=== PATIENT | female | born 1985 | race Caucasian/White ===

== ENCOUNTER 2019-03-17 08:40 | Outpatient (CLI) | payer BC ==
--- NOTE | 2019-03-17 12:10 | NM ---
HEPATOBILIARY SCAN: HISTORY:Right upper quadrant abdominal pain. RADIOPHARMACEUTICAL: 4.5 mCi Technetium 99m Mebrofenin injected intravenously FINDINGS: There is normal tracer extraction by the liver with normal excretion into the biliary tracts and smal l bowel loops and normal filling of the gallbladder. The calculated gallbladder ejection fraction following an oral fatty meal measures 32%. IMPRESSION:Normal exam.
== END 2019-03-17 08:41 | disposition home or self-care (01) ==
LOC: NM 08:40
PROVIDERS: ATTEND Internal Medicine Gastroenterology
DX: T50.905A Adverse effect of unspecified drugs, medicaments and biological substances, initial encounter (principal); N20.0 Calculus of kidney; K92.1 Melena; R11.0 Nausea; K59.09 Other constipation; D18.03 Hemangioma of intra-abdominal structures; R10.11 Right upper quadrant pain
CPT/HCPCS: 78227; A9537

== ENCOUNTER 2019-03-25 09:05 | Outpatient (CLI) | payer OTHER, BC ==
--- NOTE | 2019-03-25 11:57 | RAD ---
Upper GI series with air contrast: 03/25/2019 HISTORY: 34-year-old female with right upper quadrant abdominal pain and nausea. TECHNIQUE: Upright administration of effervescent granules, and thick liquid barium. Prone YANES administration of thin liquid barium through a straw. Fluoroscopy time: 1.6 minutes Dose: 304.4 uGy*m^2 FINDINGS: The esophagus, stomach, and duodenal bulb, have normal motility, distensibility, and where visible, m ucosal pattern. No moderate sized or large hiatal hernia. Minimal gastroesophageal reflux. No mass identified. IMPRESSION: 1. Minimal gastroesophageal reflux. 2. Otherwise negative.
== END 2019-03-25 09:06 | disposition home or self-care (01) ==
LOC: RAD 09:05
PROVIDERS: ATTEND Internal Medicine Gastroenterology
DX: R10.11 Right upper quadrant pain (principal); R11.0 Nausea; K21.9 Gastro-esophageal reflux disease without esophagitis
CPT/HCPCS: 74247